=== PATIENT | female | born 1945 | race Caucasian/White ===

== ENCOUNTER 2017-03-31 12:32 | Emergency (ER) | payer MEDICARE ==
--- NOTE | 2017-03-31 14:00 | RAD ---
EXAM: FOUR VIEWS RIGHT KNEE: HISTORY: Pain. Swelling. COMPARISON: None. FINDINGS: There is a suprapatellar effusion. Mild degenerative change in the patellofemoral compartment. Med ial and lateral compartment joint space heights are preserved. No fracture. No cortical irregulari ty or periosteal reaction. Extensive atherosclerosis is noted. IMPRESSION: 1. Degenerative change of patellofemoral compartment. 2. Small joint effusion. POS: [facility]
--- NOTE | 2017-03-31 14:11 | RAD ---
3 VIEWS OF THE LEFT FOOT: Date: 03/31/17 COMPARISON: None. HISTORY: Hit toe on wall, foot pain. FINDINGS: There is extensive atherosclerotic calcification along the dorsal aspect of the foot and posterior t o the ankle. There is enthesophyte formation at the origin of the plantar aponeurosis. No fracture or evidence of dislocation is seen. IMPRESSION: Atherosclerotic disease. No acute fracture or evidence of dislocation noted. POS: [facility]
== END 2017-03-31 14:06 | disposition home or self-care (01) ==
LOC: NAV ERS 12:32
DX: M25.561 Pain in right knee (principal); M25.572 Pain in left ankle and joints of left foot; I12.0 Hypertensive chronic kidney disease with stage 5 chronic kidney disease or end stage renal disease; N18.6 End stage renal disease; I25.10 Atherosclerotic heart disease of native coronary artery without angina pectoris; E78.5 Hyperlipidemia, unspecified; F41.9 Anxiety disorder, unspecified; F32.9 Major depressive disorder, single episode, unspecified; G30.9 Alzheimer's disease, unspecified; Z99.2 Dependence on renal dialysis; W22.01XA Walked into wall, initial encounter

== ENCOUNTER 2017-05-27 13:15 | Emergency (ER) | payer MEDICARE ==
--- NOTE | 2017-05-27 14:40 | RAD ---
RIGHT WRIST RADIOGRAPHS THREE VIEWS: History: Injury, pain. FINDINGS: There is a circumscribed lucency at the distal radius underlying the articular surface favoring a be nign cyst. No displaced fracture visualized. There is vascular calcification. Scattered mild osteoph ytosis is seen. IMPRESSION: No acute osseous abnormality of the right wrist. POS: [facility]
--- NOTE | 2017-05-27 14:45 | RAD ---
FOUR VIEWS RIGHT KNEE: Date: 05-27-17 History: Right knee injury. Swelling to the right knee and wrist. FINDINGS: There is no evidence of a fracture or dislocation. There is subcutaneous soft tissue swelling seen a nterior to the level of the patella. Dense vascular calcifications are seen posterior to the knee an d were also seen on the study of 03-31-17. There is probable very small joint effusion similar to the prior exam. IMPRESSION: 1. Interval development of subcutaneous soft tissue swelling anterior to the level of the patella. N o fracture is seen involving the right knee. 2. Small joint effusion similar to prior exam. 3. Dense vascular calcifications. POS: [facility]
== END 2017-05-27 14:26 | disposition home or self-care (01) ==
LOC: NAV ERS 13:15
DX: S63.501A Unspecified sprain of right wrist, initial encounter (principal); S80.01XA Contusion of right knee, initial encounter; E78.5 Hyperlipidemia, unspecified; I25.10 Atherosclerotic heart disease of native coronary artery without angina pectoris; I12.0 Hypertensive chronic kidney disease with stage 5 chronic kidney disease or end stage renal disease; N18.6 End stage renal disease; G30.9 Alzheimer's disease, unspecified; F02.80 Dementia in other diseases classified elsewhere, unspecified severity, without behavioral disturbance, psychotic disturbance, mood disturbance, and anxiety; F32.9 Major depressive disorder, single episode, unspecified; F41.9 Anxiety disorder, unspecified; Z86.73 Personal history of transient ischemic attack (TIA), and cerebral infarction without residual deficits; Z79.82 Long term (current) use of aspirin; Z79.899 Other long term (current) drug therapy; W17.89XA Other fall from one level to another, initial encounter